=== PATIENT | female | born 1970 | race Caucasian/White ===

== ENCOUNTER 2021-01-26 17:02 | Emergency (ER) | payer MEDICAID, SELFPAY ==
[2021-01-26 17:03] VITALS: BP 170/93; PULSE 111; RESP 16; TEMP 36.6; O2SAT 96; BMI 40.8
--- NOTE | 2021-01-26 17:20 | CT_ITS ---
STUDY: CT ABDOMEN AND PELVIS WITH CONTRAST REASON FOR EXAM: Female, 51 years old. Epigastric right upper quadrant pain RADIATION DOSAGE (If Supplied By Facility): CTDIvol = ( 18.57 ) mGy, DLP = ( 1236.34 ) mGycm TECHNIQUE: CT images were obtained from the dome of the diaphragm to the symphysis pubis without oral contrast. IV 100mL Isovue-300 was administered. Sagittal and coronal images were reconstructed. Individualized dose optimization techniques were used for this CT. COMPARISON: None. FINDINGS: The visualized lung bases are unremarkable. The visualized portions of the heart are within normal limits. Liver is moderately enlarged and fatty infiltrated without focal lesions or bili dilation. Normal gallbladder and extrahepatic biliary system. Normal spleen. Normal pancreas. Normal bilateral adrenal glands. Normal right kidney. Normal left kidney. There is no intestinal obstruction. Appendix is not seen, likely removed. Normal abdominal aorta. Normal inferior vena cava. Normal retroperitoneum. Normal urinary bladder. Normal abdominal wall. Normal osseous structures. CT/Abdomen/Pelvis W IV Cont ONLY IMPRESSION: Hepatomegaly and steatosis. No acute abnormality. Electronically Signed: Santos Ross MD at 19:00 EST Tel , Service support ,
--- NOTE | 2021-01-26 17:21 | EDS_ITS ---
HPI HPI - GI History of Present Illness Chief Complaint: Nausea/Vomiting Informant: patient Abdominal Pain/Flank Pain Onset: Days (6) Context: Gradual Onset Timing: Waxes and wanes Quality: Aching Location: Epigastric and RUQ Current Severity: 08/08 Maximum Severity: Severe Worsened by: Food Relieved by: Nothing Nausea/Vomiting/Emesis GI Symptom: Positive for Nausea and Vomiting Onset: Days (6) Quality: Positive for Nonbilious and - (Off and on); Negative for Blood streaks, Coffee ground and Hematemesis Diarrhea/Melena/Hematochezia GI Symptom: Negative for Diarrhea, Melena and Hematochezia Associated Symptoms Associated Symptoms: Positive for - (Decreased urination due to decreased fluid intake); Negative for Dysuria, Frequency, Hematuria and Urgency Narrative Narrative: Patient states she has a hiatal hernia, she is bad about consistently taking her Protonix, and has chronic epigastric pain for years. However since 6 days ago or so, she has been having waves of worsening pain in her epigastrium and right upper quadrant, as well as random episodes of vomiting. Symptoms seem to be worse after certain foods. They also seem to occur randomly. She states the pain radiates into her low back. Nothing to her shoulder, chest, lower extremities. No fevers or chills. No itching or jaundice. History of appendectomy, bilateral tubal ligation no other abdominal surgeries. [facility] Medical History (Updated 01/26/21 @ 20:[address] Derik Sheppard MD) Hiatal hernia Home Medications hydrocodone-acetaminophen 1 tab PO Q4H PRN PRN 2 Days #10 tablet 01/26/21 [Rx Last Taken Unknown] ondansetron 8 mg PO Q8H PRN PRN #20 tab 01/26/21 [Rx Last Taken Unknown] Allergy/AdvReac Type Severity Reaction Status Date / Time ciprofloxacin [From Cipro] Allergy Rash Verified 01/26/21 17:05 NSAIDS (Non-Steroidal Allergy Rash Verified 01/26/21 17:05 Anti-Inflamma Surgical History (Updated 01/26/21 @ 17:[address] Derik Sheppard MD) History of appendectomy History of bilateral tubal ligation Social History Smoking Status: Unknown if ever smoked ROS ROS ED Constitutional Constitutional ED: Denies chills or fever(s) Eyes Eyes: Denies change in vision or diplopia ENT ENT ED: Denies rhinorrhea or sore throat Cardiovascular Cardiovascular: Denies chest pain or palpitations Respiratory/Chest Respiratory/Chest: Denies cough or dyspnea Gastrointestinal Gastrointestinal: Reports as per HPI, abdominal pain, nausea, vomiting and other Details: Chronically constipated ; Denies diarrhea Genitourinary Genitourinary ED: Denies dysuria or hematuria Musculoskeletal Musculoskeletal: Reports back pain; Denies neck pain Integumentary Denies abscess or rash Neurologic Neurologic: Denies headache(s), paresthesias or weakness Psychiatric Psychiatric: Denies anxiety or suicidal thoughts EXAM Physical Exam Const Vital Signs: 01/26/21 17:03 01/26/21 19:07 Temperature 97.8 F Temperature Source Temporal Pulse Rate 111 H Respiratory Rate 16 16 Blood Pressure 170/93 H Blood Pressure Mean 118 Pulse Ox 96 Oxygen Delivery Method Room Air Positive well nourished, well developed and obese General Appearance ED: well developed and NAD Nutritional Appearance: obese HEENT Reports moist mucous membranes normocephalic and atraumatic Eyes PERRL and EOMs intact bilaterally Neck full ROM and supple Resp normal respiratory effort and clear to auscultation bilaterally Cardio regular rate, regular rhythm and no murmurs GI non-distended GI Narrative: Mild-moderate tenderness epigastrium, right upper quadrant, and lateral flank subcostal on the right. Otherwise nontender throughout. No guarding or rebound tenderness. Auscultation: normoactive bowel sounds Palpation: soft Back/Spine no CVA tenderness General Back: other FROM Extremity normal to inspection General Extremety ED: Negative for edema, pulses abnormal or tenderness General Extremity: Negative for edema or pulses abnormal Neuro oriented x3, CN's II-XII intact bilaterally and no sensory deficits noted Sensorium / Orientation: awake and alert Motor Exam: strength 5/5 throughout Skin no rashes or lesions noted and no wounds MDM MDM MDM Narrative Medical decision making narrative: Mild leukocytosis, normal liver enzymes, normal urinalysis. CT scan was obtained because although ultrasound would be a better test for the gallbladder which is at the top of my differential, it is not available at the time the patient presents. CT shows nothing acute. I did my own personal bedside ED ultrasound, the patient does have very mild tenderness on the gallbladder, however there do not appear to be any stones, pericholecystic fluid, or gallbladder wall thickening. Therefore my suspicion for acute cholecystitis is especially low, especially since the patient only t ook 2 mg of her morphine 4 mg that were ordered, and her pain was almost completely resolved and she felt much better, in addition to the Zofran. I think she should have an official outpatient ultrasound, and if it confirms she does not have any stones, she may need to follow-up for a HIDA scan. I discussed all that with Dr. Malone he was in agreement and will see the patient in follow-up after ultrasound which will be scheduled for after the weekend. Patient was given a prescription for something for pain just in case, and advised to avoid fats in her diet, we discussed reasons to return she is comfortable with that plan. Lab Data Attestation: I reviewed the patient's lab results. Labs: Laboratory Results - last 24 hr 01/26/21 01/26/21 01/26/21 17:47 17:47 19:05 WBC 12.4 H RBC 5.47 H Hgb 16.6 H Hct 48.0 H MCV 87.8 MCH 30.3 MCHC 34.6 RDW Std Deviation 40.8 RDW Coeff of T[place] 12.6 Plt Count 282 MPV 9.3 Immature Gran % (Auto) 0.200 Neut % (Auto) 77.0 H Lymph % (Auto) 10.5 L Ritchie % (Auto) 11.6 H Eos % (Auto) 0.4 Baso % (Auto) 0.3 Absolute Neuts (auto) 9.5 H Absolute Lymphs (auto) 1.30 Nucleated RBC % 0 Sodium 138 Potassium 3.1 L Chloride 104 Carbon Dioxide 24.0 Anion Gap 10 BUN 9 Creatinine 0.82 Estim Creat Clear Calc 75.13 Est GFR (MDRD) Af Amer 94 Est GFR (MDRD) Non-Af 77 BUN/Creatinine Ratio 10.9 Glucose 121 H Calcium 8.3 L Total Bilirubin 0.60 AST 29 ALT 59 H Alkaline Phosphatase 100 Total Protein 7.3 Albumin 3.4 Globulin 3.9 Albumin/Globulin Ratio 0.9 Lipase 58 L Urine Color Yellow Urine Clarity Clear Urine pH 6.5 Ur Specific [place] 1.010 Urine Protein 15 H Urine Glucose (UA) Normal Urine Ketones 50 H Urine Occult Blood 25 H Urine Nitrite Negative Urine Bilirubin Negative Urine Urobilinogen Normal Ur Leukocyte Esterase Negative Urine RBC 0 SEEN Urine WBC 0 SEEN Ur Squamous Epith Cells 0-5 SEEN Urine Bacteria 0 SEEN Urine Mucus 0 SEEN Radiography Diagnostic Testing: Clinical Impression(s) from Imaging Studies Abdomen/Pelvis CT 01/26/21 17:20 IMPRESSION: Hepatomegaly and steatosis. No acute abnormality. Electronically Signed: Santos Ross MD at 19:00 EST Tel , Service support , Discharge Plan Triage Chief Complaint: Nausea/Vomiting ED Provider: Derik Sheppard Dx/Rx/DC Orders Clinical Impression: Biliary colic Instructions: ED Gallstones with Biliary Colic Prescriptions: New hydrocodone-acetaminophen [hydrocodone-acetaminophen] 1 TABLET tablet 1 tab PO Q4H PRN PRN (Reason: Pain) 2 Days Qty: 10 RF: 0 ondansetron [ondansetron] 4 MG tablet 8 mg PO Q8H PRN PRN (Reason: Nausea) Qty: 20 RF: 0 Primary Care Provider: Valorie Parra Referrals: Luciano Malone MD [STAFF PHYSICIAN] - (Call for follow-up appointment to occur after you have your ultrasound) Valorie Parra, DO [Primary Care Provider] - Activity Restrictions/Additional Instructions: (See instructions above although we cannot confirm that you actually have gallstones yet --your outpatient ultrasound will confirm 1 way or the other.) Disposition Disposition: Home, Self Care
[2021-01-26] MEDS: Morphine 4 MG/ML Syringe IV (17:48)
[2021-01-26] MEDS: 0.9% Normal Saline 1,000 ML 1000 ML IV (17:48)
[2021-01-26] MEDS: Ondansetron 4 MG/2 ML Vial IV (17:48)
[2021-01-26 17:59] LABS: Absolute Neutrophil Count 9.5 X10^3/uL (2.0-7.7); Basophil# 0.04 X10^3/uL; Basophil% 0.3 % (0-1); Eosinophil# 0.05 X10^3/uL; Eosinophils% 0.4 % (0-5); Hemoglobin 16.6 g/dL (12.0-15.0); Lymphocyte % 10.5 % (19-41); Mean Corp Hgb Conc 34.6 g/dL (32-36); Mean Corpuscular Hgb 30.3 pg (27.0-32.0); Mean Corpuscular Volume 87.8 fL (81-99); Mean Platelet Vol. 9.3 fl (6.2-12.0); Monocyte# 1.43 X10^3/uL; Monocyte% 11.6 % (0-10); NRBC Flagged by Analyzer 0 % (0-5); Neutrophil # 9.53 X10^3/uL (2.7-7.7); Platelet Count 282 K/mm3 (150-450); RBC Distribution Width CV 12.6 % (11.6-14.6); RBC Distribution Width SD 40.8 fl (35.1-43.9); Red Blood Count 5.47 M/mm3 (4.2-5.4); White Blood Count 12.4 K/mm3 (4.4-11.0)
[2021-01-26 18:16] LABS: ALB/GLOB Ratio 0.9 RATIO (0.9-2.4); AST(SGOT) 29 U/L (15-37); Alanine Aminotransfer ALT/SGPT 59 U/L (13-56); Albumin, Serum 3.4 g/dL (3.2-5.0); Alkaline Phosphatase 100 U/L (45-117); BUN 9 mg/dL (7-18); BUN/Creat Ratio 10.9 RATIO (10-20); Calcium,Total 8.3 mg/dL (8.5-10.1); Chloride 104 mmol/L (98-107); Creatinine, Serum 0.82 mg/dL (0.55-1.02); EST Glomerular Filtration Rate 77 mL/min (>60); Est Glom Filt Rate - Afr Amer 94 mL/min (>60); Estimated Creatinine Clearance 75.13 ml/min; Globulin 3.9 g/dL (2.2-4.2); Glucose 121 mg/dL (74-106); Lipase 58 U/L (73-393); Potassium 3.1 mmol/L (3.5-5.1); Protein, Total 7.3 g/dL (6.4-8.2); Sodium Level 138 mmol/L (136-145)
[2021-01-26 18:17] LABS: Anion Gap 10 (5-15)
[2021-01-26 19:07] VITALS: RESP 16
[2021-01-26 19:19] LABS: Bacteria 0 SEEN /hpf (None Seen); Mucous, Urine 0 SEEN /hpf (<or=2+); Red Blood Cells-Urine 0 SEEN /hpf (0-5); White Blood Cells 0 SEEN /hpf (0-5)
[2021-01-26 19:20] LABS: Color, Urine Yellow (Yellow); Glucose, Dipstick Normal (Normal); Ketone-Dipstick 50 mg/dl (Negative); Leukocyte Esterase-Dipstick Negative /ul (Negative); Nitrite-Dipstick Negative (Negative); Occult Blood-Urine 25 /ul (Negative); Protein-Dipstick 15 mg/dl (Negative); Urine Bilirubin Dipstick Negative (Negative); Urine Clarity Clear (Clear); Urine Urobilinogen Normal (Normal); Urine pH 6.5 (5.0 - 8.0)
[2021-01-26 19:38] LABS: Squamous Epithelial Cells - UA 0-5 SEEN /hpf (5-10)
== END 2021-01-26 21:18 | disposition home or self-care (01) ==
PROVIDERS: Emergency Provider Emergency Medicine; PCP Family Medicine
DX: K80.50 Calculus of bile duct without cholangitis or cholecystitis without obstruction (principal); E66.9 Obesity, unspecified
CPT/HCPCS: 74177; 80053; 81001; 83690; 85025; 96374; 96375; 99282; J7030; Q9967; A4216; J2405

== ENCOUNTER 2024-06-23 15:50 | Emergency (ER) | payer OTHER, SELFPAY ==
[2024-06-23 15:51] VITALS: BP 158/106; PULSE 119; RESP 16; TEMP 35.8; O2SAT 95; BMI 37.5
[2024-06-23] MEDS: Orphenadrine 60 MG/2 ML Ampul IM (16:24)
[2024-06-23] MEDS: Morphine 4 MG/ML Syringe IM (16:24)
--- NOTE | 2024-06-23 16:26 | ED.VIS.BACK ---
HPI History of Present Illness Chief Complaint: Back Narrative Narrative: 54-year-old female past medical history of previous back pain and status post fall in March, approximately 4 months ago has been treated by her primary care provider Dr. Kvng Jimenez with prednisone for her back pain as she has allergies to NSAIDs. She states that she took a Medrol Dosepak and felt improved, but has been having intermittent episodes of pain for the last few months. Most recently, she states that she took a muscle relaxer and a Vicodin and thought that her pain in her back would improve, but it has not. 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 She denies any fevers or chills, no loss of bowel or bladder. She has pain in her left buttocks that radiates down her leg. Pain is worse with movement of her back as well. She denies other red flag signs for cauda equina. [facility] Medical History Hiatal hernia Home Medications ?Medication ?Instructions ?Recorded ?Last Taken ?Type hydrocodone-acetaminophen 5-325mg 1 tab PO Q4H PRN PRN Pain 2 days 01/26/21 Unknown Rx 5mg-325mg #10 TABLETS ondansetron 4 mg disintegrating 8 mg (2 x 4 mg) PO Q8H PRN PRN 01/26/21 Unknown Rx tablet Nausea #20 tabs orphenadrine citrate 100 mg 100 mg PO BID PRN muscle spasm #20 06/23/24 Unknown Rx tablet,extended release tabs Allergy/AdvReac Type Severity Reaction Status Date / Time ciprofloxacin (From Cipro) Allergy Rash Verified 06/23/24 16:28 NSAIDS (Non-Steroidal Allergy Rash Verified 06/23/24 16:28 Anti-Inflamma Surgical History History of bilateral tubal ligation History of appendectomy Social History Smoking Status: Unknown if ever smoked ROS ROS ED ROS Narrative Positive low back pain and left buttocks pain with pain radiating down left leg. No fevers or chills. No nausea or vomiting. No loss of bowel or bladder. Stabbing pain in left buttocks/sciatic area with radiation down left leg. EXAM Physical Exam Narrative Exam Narrative: Afebrile. Vital signs noted. Nontoxic-appearing. Cardiovascular examination reveals mild tachycardia. Lungs are clear to auscultation bilaterally. Abdomen is soft, nontender, with positive bowel sounds without guarding or rebound. Neurological examination is nonfocal, nonlateralizing. DTRs, patellar equal and symmetric but slightly diminished. Straight leg raising in a supine position is negative for radicular symptoms. Mild tenderness to palpation left sciatic notch. Const Vital Signs: 06/23/24 15:51 Temperature 96.5 F L Temperature Source Temporal Pulse Rate 119 H Respiratory Rate 16 Blood Pressure 158/106 H Blood Pressure Mean 123 Pulse Ox 95 Oxygen Delivery Method Room Air MDM MDM MDM Narrative Medical decision making narrative: Differential diagnosis includes but not limited to cauda equina versus compression fracture of the lumbar spine versus disc herniation versus sciatica. Patient states that she was told that she may not receive more steroids/Medrol Dosepak because her hemoglobin A1c was above 8. My suspicion for cauda equina is very low because she has no red flag signs and she was seen ambulating in the ED. I will repeat x-rays of the lumbar spine as she states she has not had them since her fall in March. Patient was reassured. She was administered morphine and Norflex intramuscularly for analgesia. She was told to follow-up with her primary care provider as she may need physical therapy. I will also refer her to Dr. Chambers with spine. On my independent interpretation of the x-rays of the lumbar spine, there is no evidence of acute fracture. She does have degenerative joint disease. I reviewed the radiology report which confirms my independent interpretation. At this point in time, she was seen ambulating with mild assistance from her significant other to the bathroom. Upon repeat examination, she may be slightly improved. I do feel that she can be discharged to follow-up. I will write her for Norflex instead of using her Zanaflex. She will follow-up with her primary care provider regarding further analgesics. Return instructions to the emergency department were reviewed. Disposition is discharged home in stable condition. History & Record Review Discussion w/independent historian: Patient Additional record(s) reviewed:: Prior ED visit (Noncontributory, was here for biliary colic) Radiography X-Ray: LS SPine, Read by ED Physician, Read by Radiologist and No Fracture Diagnostic Testing: Clinical Impression(s) from Imaging Studies Lumbar Spine X-Ray 06/23/24 16:30 IMPRESSION: Degenerative changes as above. Reading Location: [facility] Discharge Plan Triage Chief Complaint: Back ED Provider: Yomi Bobby Dx/Rx/DC Orders Clinical Impression: Sciatica, Degenerative joint disease (DJD) of lumbar spine Instructions: ED Back Pain (Acute or Chronic), ED Sciatica Prescriptions: New orphenadrine citrate 100 mg tablet extended release 100 mg PO BID PRN (Reason: muscle spasm) Qty: 20 0RF No Action hydrocodone-acetaminophen [hydrocodone-acetaminophen] 1 TABLET tablet 1 tab PO Q4H PRN PRN (Reason: Pain) 2 Days Qty: 10 0RF ondansetron [ondansetron] 4 MG tablet 8 mg PO Q8H PRN PRN (Reason: Nausea) Qty: 20 0RF Primary Care Provider: Kvng Jimenez Referrals: Juan Antonio Chambers MD [Med Staff - Active Staff] - As soon as possible Kvng Jimenez DO [Primary Care Provider] - Activity Restrictions/Additional Instructions: Follow-up with Dr. Jimenez regarding further pain control and analgesia. Follow-up with Dr. Chambers as soon as possible regarding your low back pain and sciatica. Take the Norflex instead of Zanaflex as a muscle relaxer. Return to the emergency department with fever, new or worsening symptoms. Print Language: Serbian Disposition Disposition: Home, Self Care
--- NOTE | 2024-06-23 16:30 | RAD_ITS ---
EXAM: XR Lumbosacral Spine, 2 or 3 Views CLINICAL INDICATION: PAIN TECHNIQUE: Frontal and lateral views of the lumbar spine and sacrum. COMPARISON: No relevant prior studies available. FINDINGS: VERTEBRAE: Mild facet arthropathy of L4-S1. No acute fracture. Normal alignment. SACRUM/COCCYX: Unremarkable as visualized. No acute fracture. DISC SPACES: No acute findings. No significant narrowing. SOFT TISSUES: Unremarkable. VASCULATURE: Scattered calcified atherosclerotic disease of aorta. RAD/Lumbar Spine 2 or 3 Views IMPRESSION: Degenerative changes as above. Reading Location: [id number]
[2024-06-23 17:41] VITALS: BP 136/76; PULSE 64; RESP 18; TEMP 36.9; O2SAT 99
== END 2024-06-23 17:44 | disposition home or self-care (01) ==
PROVIDERS: Emergency Provider Emergency Medicine; Visit Provider Emergency Medicine
DX: M54.30 Sciatica, unspecified side (principal); M47.816 Spondylosis without myelopathy or radiculopathy, lumbar region
CPT/HCPCS: 72100; 96372; 99283